=== PATIENT | female | born 1945 | race Caucasian/White ===

== ENCOUNTER → 2017-11-20 | Outpatient (CLI) | payer MEDICARE ==
[~2017-11-20] MED LIST: ASPIR 8181 MG PO; CIPRO500 MG PO; CLEOCIN HCL150 MG PO; COLON HERBAL C1 EACH PO; MIRALAX17 GM PO; NAMENDA 5 MG TAB5 M1 PO; NORCO 5-325 TA1 EACH PO; SEE COMMENTS; STOOL SOFTENER100 MG PO; UNICOMPLEX M TA1 TA1 PO
== END ==
LOC: M.ULTRA 07:27
DX: R22.2 Localized swelling, mass and lump, trunk (principal); I10 Essential (primary) hypertension; E78.5 Hyperlipidemia, unspecified; I95.89 Other hypotension; Z90.710 Acquired absence of both cervix and uterus

== ENCOUNTER 2018-04-13 11:39 | Emergency (ER) | payer MEDICARE ==
[~2018-04-13] VITALS: Ht 162.6 cm; Wt 81.7 kg
[2018-04-13 12:07] LABS: ABSOLUTE BASOPHILS 0.1 thou/uL (0.0-0.2); ABSOLUTE LYMPHOCYTES 1.2 thou/uL (0.8-5.3); ABSOLUTE MONOCYTES 0.5 thou/uL (0.0-1.2); ABSOLUTE NEUTROPHILS 6.8 thou/uL (1.6-8.1); BASOPHILS 0.7 %; EOSINOPHILS 0.3 %; HEMATOCRIT 34.2 % (37.0-47.0); HEMOGLOBIN 11.4 gm/dL (12.0-15.0); LYMPHOCYTES 13.7 %; MCH 29.1 pg (26.0-34.0); MCHC 33.4 g/dL (28.0-37.0); MCV 87.1 fL (80.0-100.0); MONOCYTES 6.4 %; MPV 6.6 fl. (7.2-11.1); NUCLEATED RBCS 0 /100WBC; PLATELET COUNT* 524 thou/uL (150-400); POLYS 78.9 %; RBC 3.92 mil/uL (4.20-5.00); RDW-CV 13.7 % (10.5-14.5); WBC 8.6 thou/uL (4.0-11.0)
[2018-04-13 12:15] LABS: ANION GAP 7 mmol/L (7-16); BUN 8 mg/dL (7-18); CALCIUM 8.8 mg/dL (8.5-10.1); CHLORIDE 98 mmol/L (98-107); CO2 28 mmol/L (21-32); CREATININE 0.6 mg/dL (0.6-1.3); GLUCOSE 108 mg/dL (70-99); POTASSIUM 3.7 mmol/L (3.5-5.1); SODIUM 133 mmol/L (136-145)
[2018-04-13 12:16] LABS: APTT 36.6 Seconds (25.0-31.3); INR 1.1; PROTIME 10.7 Seconds (9.20-11.50)
[2018-04-13 12:33] LABS: ALBUMIN 2.1 g/dL (3.4-5.0); ALKALINE PHOSPHATASE 86 U/L (46-116); CK-MB MASS < 0.5 ng/mL (<0.5-3.6); NT-PRO BRAIN NAT PEPTIDE 115 pg/mL (<300); SGOT 37 U/L (15-37); SGPT 55 U/L (30-65); TOTAL BILIRUBIN 0.4 mg/dL (<0.1-1.0); TOTAL PROTEIN 6.9 g/dL (6.4-8.2); TROPONIN-I LEVEL <0.06 ng/mL (<0.06)
[2018-04-13 13:29] LABS: URINE BILIRUBIN NEGATIVE (Negative); URINE BLOOD NEGATIVE (Negative); URINE CLARITY CLEAR; URINE COLOR YELLOW; URINE GLUCOSE-RANDOM NEGATIVE (Negative); URINE KETONES NEGATIVE (Negative); URINE LEUKOCYTES-REFLEX NEGATIVE (Negative); URINE NITRITE-REFLEX NEGATIVE (Negative); URINE PROTEIN NEGATIVE (Negative); URINE SPECIFIC GRAVITY <= 1.005 (1.005-1.030); URINE UROBILINOGEN 0.2 E.U./dl (0.2-1.0)
[2018-04-13 13:44] VITALS: BP 129/53
--- NOTE | 2018-04-13 18:44 | EKG ---
[place] [address] ELECTROCARDIOGRAM REPORT Name: AYSHA WILEY Room: [facility]#: [id number] Admission: 04/13/18 Attend Phys: Discharge: 04/13/18 Date of : 41 Report #: [id number] THIS REPORT FOR: //name// [facility] ED Test Date: 2018-04-13 Test Time: 12:07:31 Pat Name: AYSHA WILEY Department: Room: Gender: F Transcription Manager: : 1945 Requested By: Tello Chavez Order Number: [id number] MD: Vince Uriarte Measurements Intervals [place] Rate: 80 P: 49 ND: 130 QRS: -8 QRSD: 89 T: 15 QT: 381 QTc: 440 Interpretive Statements Sinus rhythm Abnormal R-wave progression, early transition Compared to ECG 06/27/2015 10:28:28 No significant changes Electronically Signed On 04-13-2018 18:44:46 CDT by Vince Uriarte [email or web address] <ELECTRONICALLY SIGNED> By: Vince Uriarte MD, [facility] 04/13/18 1844 1207 120 Vince Uriarte MD, FACC /EPI
== END 2018-04-13 13:46 | disposition home or self-care (01) ==
LOC: M.ERS 11:39
PROVIDERS: Family Medicine
DX: R53.1 Weakness (principal); I10 Essential (primary) hypertension; G30.9 Alzheimer's disease, unspecified; Z88.0 Allergy status to penicillin; Z88.1 Allergy status to other antibiotic agents

== ENCOUNTER 2019-10-04 10:37 | Emergency (ER) | payer MEDICARE ==
[~2019-10-04] VITALS: Ht 162.6 cm; Wt 66.2 kg
[2019-10-04] MEDS ORDERED: DULCOLAX STOOL100 M1 PO (11:17)
[2019-10-04 11:27] LABS: URINE BILIRUBIN NEGATIVE (Negative); URINE BLOOD TRACE (Negative); URINE CLARITY CLEAR; URINE COLOR YELLOW; URINE GLUCOSE-RANDOM NEGATIVE (Negative); URINE KETONES NEGATIVE (Negative); URINE LEUKOCYTES-REFLEX TRACE (Negative); URINE PROTEIN NEGATIVE (Negative); URINE SPECIFIC GRAVITY 1.015 (1.005-1.030); URINE UROBILINOGEN 0.2 E.U./dl (0.2-1.0)
[2019-10-04 11:28] LABS: URINE NITRITE-REFLEX POSITIVE (Negative)
[2019-10-04 11:32] LABS: BACTERIA-REFLEX >30 Many /HPF (None Seen); MUCUS None Seen strn/LPF (None Seen); SQUAMOUS 0-3 Few /LPF (0-3); URINE RBC 0-2 Rare /HPF (0-2); URINE WBC-REFLEX 6-15 Few /HPF (0-5)
[2019-10-04 11:33] LABS: CASTS None Seen /LPF (None Seen); CRYSTALS None Seen /LPF (None Seen)
[2019-10-04 11:57] LABS: ABSOLUTE LYMPHOCYTES 0.7 thou/uL (0.8-5.3); ABSOLUTE MONOCYTES 0.6 thou/uL (0.0-1.2); ABSOLUTE NEUTROPHILS 6.8 thou/uL (1.6-8.1); BASOPHILS 0.2 %; EOSINOPHILS 0.2 %; HEMATOCRIT 38.5 % (37.0-47.0); HEMOGLOBIN 12.9 gm/dL (12.0-15.0); LYMPHOCYTES 8.2 %; MCH 30.2 pg (26.0-34.0); MCHC 33.5 g/dL (28.0-37.0); MCV 90.3 fL (80.0-100.0); MONOCYTES 7.1 %; MPV 8.3 fl. (7.2-11.1); NUCLEATED RBCS 0 /100WBC; PLATELET COUNT* 151 thou/uL (150-400); POLYS 84.3 %; RBC 4.27 mil/uL (4.20-5.00); RDW-CV 13.9 % (10.5-14.5)
[2019-10-04 12:04] LABS: APTT 29.7 Seconds (25.0-31.3); PROTIME 10.5 Seconds (9.20-11.50)
[2019-10-04 12:08] LABS: CALCIUM 8.4 mg/dL (8.5-10.1); CREATININE 0.7 mg/dL (0.6-1.3); TOTAL BILIRUBIN 0.4 mg/dL (<0.1-1.0); TOTAL PROTEIN 6.3 g/dL (6.4-8.2)
[2019-10-04 12:22] LABS: POTASSIUM 3.9 mmol/L (3.5-5.1)
[2019-10-04 14:18] VITALS: BP 106/41
--- NOTE | 2019-10-04 15:28 | EKG ---
[place] [address] ELECTROCARDIOGRAM REPORT Name: SAURABHAYSHA N Room: [facility]#: [id number] Admission: 10/04/19 Attend Phys: Discharge: 10/04/19 Date of : 41 Report #: [id number] THIS REPORT FOR: //name// [facility] ED Test Date: 2019-10-04 Test Time: 10:55:56 Pat Name: AYSHA WILEY Department: Room: Gender: F Post Framer: : 1945 Requested By: Tello Chavez Order Number: [id number] MD: Taj Grant Measurements Intervals [place] Rate: 70 P: 51 MA: 154 QRS: -7 QRSD: 98 T: 12 QT: 421 QTc: 455 Interpretive Statements Sinus rhythm Abnormal R-wave progression, early transition Compared to ECG 04/13/2018 12:07:31 No significant changes Electronically Signed On 10-04-2019 15:27:44 SALOON KEEPER by Taj Grant [email or web address] <ELECTRONICALLY SIGNED> By: Taj Grant MD, [facility] 10/04/19 1527 1055 1055 Taj Grant MD, FACC /EPI
== END 2019-10-04 14:18 ==
LOC: M.ERS 10:37
PROVIDERS: Family Medicine
DX: S00.83XA Contusion of other part of head, initial encounter (principal); I10 Essential (primary) hypertension; F03.90 Unspecified dementia, unspecified severity, without behavioral disturbance, psychotic disturbance, mood disturbance, and anxiety; G30.9 Alzheimer's disease, unspecified; F02.80 Dementia in other diseases classified elsewhere, unspecified severity, without behavioral disturbance, psychotic disturbance, mood disturbance, and anxiety; Z90.710 Acquired absence of both cervix and uterus; Z88.0 Allergy status to penicillin; Z88.2 Allergy status to sulfonamides; Z88.8 Allergy status to other drugs, medicaments and biological substances; W01.0XXA Fall on same level from slipping, tripping and stumbling without subsequent striking against object, initial encounter; Y93.89 Activity, other specified; Y92.89 Other specified places as the place of occurrence of the external cause; Y99.8 Other external cause status

== ENCOUNTER 2021-01-13 17:17 | Inpatient (IN) | payer MEDICARE ==
[~2021-01-13] VITALS: Ht 157.5 cm; Wt 78.9 kg
[~2021-01-13 17:17] MED LIST changes: +DULCOLAX STOOL100 M1 PO
[2021-01-13] MEDS ORDERED: TYLENOL325 MG PO (17:18)
[2021-01-13] MEDS ORDERED: SEROQUEL 25 MG25 M1 PO (17:19)
[2021-01-13] MEDS ORDERED: MIRALAX119 GM PO (17:19)
[2021-01-13] MEDS ORDERED: COLACE100 MG PO (17:19)
[2021-01-13] MEDS ORDERED: MELATONIN3 M1 PO (17:20)
[2021-01-13] MEDS ORDERED: TRILEPTAL150 MG PO (17:20)
[2021-01-13 17:21] VITALS: BP 119/51
[2021-01-13] MEDS ORDERED: VITAMIN C WIT1000 MG PO (17:21)
[2021-01-13] MEDS ORDERED: PEPCID20 MG PO (17:21)
[2021-01-13] MEDS ORDERED: VITAMIN D350 MCG PO (17:22)
[2021-01-13] MEDS ORDERED: ZINC50 MG PO (17:22)
[2021-01-13 17:41] LABS: ABSOLUTE EOSINOPHILS 0.1 thou/uL (0.0-0.7); ABSOLUTE LYMPHOCYTES 1.9 thou/uL (0.8-5.3); ABSOLUTE MONOCYTES 0.2 thou/uL (0.0-1.2); ABSOLUTE NEUTROPHILS 3.1 thou/uL (1.6-8.1); BASOPHILS 0.6 %; EOSINOPHILS 1.2 %; HEMATOCRIT 37.8 % (37.0-47.0); HEMOGLOBIN 12.4 gm/dL (12.0-15.0); LYMPHOCYTES 35.3 %; MCH 30.5 pg (26.0-34.0); MCHC 32.8 g/dL (28.0-37.0); MONOCYTES 4.6 %; MPV 7.9 fl. (7.2-11.1); NUCLEATED RBCS 0 /100WBC; PLATELET COUNT* 176 thou/uL (150-400); POLYS 58.3 %; RBC 4.06 mil/uL (4.20-5.00); RDW-CV 14.4 % (10.5-14.5); WBC 5.3 thou/uL (4.0-11.0)
[2021-01-13 17:47] LABS: URINE BILIRUBIN NEGATIVE (Negative); URINE BLOOD TRACE (Negative); URINE CLARITY SL CLOUDY; URINE COLOR YELLOW; URINE GLUCOSE-RANDOM NEGATIVE (Negative); URINE KETONES NEGATIVE (Negative); URINE LEUKOCYTES-REFLEX TRACE (Negative); URINE PROTEIN NEGATIVE (Negative); URINE SPECIFIC GRAVITY 1.025 (1.005-1.030); URINE UROBILINOGEN 0.2 E.U./dl (0.2-1.0)
[2021-01-13 17:48] LABS: CALCIUM 9.1 mg/dL (8.5-10.1); CREATININE 0.9 mg/dL (0.6-1.3); POTASSIUM 4.9 mmol/L (3.5-5.1)
[2021-01-13 17:51] LABS: URINE NITRITE-REFLEX POSITIVE (Negative)
[2021-01-13 17:51] LABS: APTT 24.5 Seconds (25.0-31.3); INR 0.9; PROTIME 10.1 Seconds (9.20-11.50)
[2021-01-13 17:52] LABS: ALBUMIN 3.6 g/dL (3.4-5.0); TOTAL BILIRUBIN 0.3 mg/dL (<0.1-1.0); TOTAL PROTEIN 7.3 g/dL (6.4-8.2)
[2021-01-13 17:53] LABS: AMORPHOUS URATES Few /LPF (None Seen); BACTERIA-REFLEX >30 Many /HPF (None Seen); HYALINE CASTS 0-3 Few /LPF (None Seen); SQUAMOUS >10 Many /LPF (0-3)
[2021-01-13 17:54] LABS: URINE RBC 3-10 Few /HPF (0-2); URINE WBC-REFLEX 6-15 Few /HPF (0-5)
[2021-01-13 20:00] VITALS: BP 105/64
[2021-01-13 20:41] VITALS: BP 102/58
--- NOTE | 2021-01-14 03:57 | NUR ---
PT ARRIVED TO THE UNIT AT 2030. CONFUSED AND FORGETFUL. PT REFUSED MEDS. DENIED PAIN. INCONTINENT OF BLADDER. BED ALARM ON FOR SAFETY. IVF INFUISING ORDERED. WILL CONTINUE TO MONITOR.
[2021-01-14 04:07] LABS: HEMATOCRIT 34.9 % (37.0-47.0); HEMOGLOBIN 11.3 gm/dL (12.0-15.0); MCH 30.5 pg (26.0-34.0); MCHC 32.5 g/dL (28.0-37.0); MCV 93.7 fL (80.0-100.0); RBC 3.73 mil/uL (4.20-5.00); RDW-CV 14.7 % (10.5-14.5); WBC 4.8 thou/uL (4.0-11.0)
[2021-01-14 04:26] LABS: CALCIUM 8.9 mg/dL (8.5-10.1); CREATININE 0.7 mg/dL (0.6-1.3); POTASSIUM 4.1 mmol/L (3.5-5.1)
[2021-01-14 08:00] VITALS: BP 89/47
[2021-01-14 16:00] VITALS: BP 127/54
--- NOTE | 2021-01-14 18:54 | NUR ---
PT NOT ORIENTED AT ALL. END STAGE DEMENTIA. CONFUSED. STUTTERS. DOES NOT FOLLOW COMMANDS. PT AGITATED AND DOES SWING AT STAFF. IMPULSIVE. DOES TRY TO GET OUT OF BED. NEW IV IN LEFT HAND WRAPPED IN [place]. LAB DRAWN X 3 DUE TO AGITATION. AT BEDSIDE EARLY IN THE SHIFT. STATES THIS IS PTS BASELINE. PT DOES EAT FOOD INDEPENDENTLY AT TIMES. PT RESTING IN BED AT THIS TIME. CALL LIGHT WITHIN REACH. WILL CONTINUE TO MONITOR.
[2021-01-14 20:00] VITALS: BP 125/62
--- NOTE | 2021-01-15 04:14 | NUR ---
PT A&O X 1, CONFUSED. VSS ON RA. PT REFUSED MEDS FIRST. THEN MEDS CRUSHED AND GIVEN WITH APPLE SAUCE. PT INCONTINENT AND REPOSITIONED EVERY 2 HRS. BED ALARM ON FOR SAFETY. WILL CONTINUE TO MONITOR.
[2021-01-15 04:49] LABS: CREATININE 0.7 mg/dL (0.6-1.3); HEMATOCRIT 34.6 % (37.0-47.0); HEMOGLOBIN 11.5 gm/dL (12.0-15.0); MAGNESIUM 2.1 mg/dL (1.8-2.4); MCH 30.7 pg (26.0-34.0); MCHC 33.1 g/dL (28.0-37.0); MCV 92.8 fL (80.0-100.0); MPV 8.2 fl. (7.2-11.1); POTASSIUM 4.3 mmol/L (3.5-5.1); RBC 3.73 mil/uL (4.20-5.00); RDW-CV 14.5 % (10.5-14.5)
[2021-01-15 07:10] VITALS: BP 131/71
--- NOTE | 2021-01-15 12:00 | NUR ---
SPOKE WITH PT'S IN ROOM. PT.SEEMED TO BE TALKING WITH BUT UNABLE TO UNDERSTAND HER. HE SAID SHE WILL SAY WORDS THAT DON'T MAKE SENSE AND DOESN'T SEEM TO KNOW ANYONE. SHE HAS LIVES AT [facility] FOR ABOUT 2 YRS, IN THEIR MEMORY CARE UNIT. SHE IS AMBULATORY AND WANDERS, STATED. SHE FEEDS SELF. SHE SEEMS TO NOT GET ALONG WITH FEMALES WELL WITH MEN. HE WOULD LIKE HER TO RETURN THERE AT DISCHARGE. SPOKE WITH TO [facility]. SHE CONFIRMED PT.WAS ON THEIR MEMORY CARE UNIT AND COULD SKILL HER IF NEEDED AT DISCHARGE. PT/OT ORDERS ARE IN. FAXED CLINICALS TO [facility].
--- NOTE | 2021-01-15 16:09 | NUR ---
PT REMAINED ALERT AND CONFUSED. PT COMBATIVE AT TIMES. 2 NEW IVS PLACED PT PULLED OLD IV OUT. AGITATION MEDS GIVEN ORDERED. SECURITY ASSISTED WITH HOLDING PT DOWN WHILE PLACING IV'S. Q2 TURNS COMPLETED. ASSISTED WITH FEEDING. FALL RISK PRECAUTIONS IN PLACE. HOURLY ROUNDING COMPLETED.
[2021-01-15 16:10] VITALS: BP 145/118
--- NOTE | 2021-01-15 17:30 | EKG ---
[place] [address] ELECTROCARDIOGRAM REPORT Name: SAURABHAYSHA N Room: [address] IN ..#: [id number] Admission: 01/13/21 Attend Phys: Yaw Morgan, Discharge: Date of : 41 Date of Service: 01/13/21 1726 Report #: [id number] THIS REPORT FOR: //name// [facility] ED Test Date: 2021-01-13 Test Time: 17:26:23 Pat Name: AYSHA WILEY Department: Room: [facility] Gender: F Dock Loader: KAITLIN : 1945 Requested By: Tello Chavez Order Number: [id number] MD: Vince Uriarte Measurements Intervals [place] Rate: 66 P: 23 [place]: 156 QRS: -16 QRSD: 102 T: 9 QT: 427 QTc: 448 Interpretive Statements Sinus rhythm Low voltage, precordial leads Abnormal R-wave progression, early transition Probable left ventricular hypertrophy Compared to ECG 10/04/2019 10:55:56 Low QRS voltage now present Electronically Signed On 01-15-2021 17:30:09 CDT by Vince Uriarte [email or web address] <ELECTRONICALLY SIGNED> By: Vince Uriarte MD, [facility] 01/15/21 1730 1726 1726 Vince Uriarte MD, FAC /EPI
[2021-01-16 08:12] LABS: HEMOGLOBIN 11.5 gm/dL (12.0-15.0)
[2021-01-16 08:15] LABS: ABSOLUTE MONOCYTES 0.3 thou/uL (0.0-1.2); MCH 30.4 pg (26.0-34.0); MONOCYTES 5.7 %; NUCLEATED RBCS 0 /100WBC; PLATELET COUNT* 169 thou/uL (150-400); RDW-CV 14.7 % (10.5-14.5)
[2021-01-16 08:19] LABS: ABSOLUTE LYMPHOCYTES 1.6 thou/uL (0.8-5.3); ABSOLUTE NEUTROPHILS 3.4 thou/uL (1.6-8.1); BASOPHILS 0.7 %; EOSINOPHILS 0.9 %; HEMATOCRIT 35.3 % (37.0-47.0); LYMPHOCYTES 29.3 %; MCHC 32.7 g/dL (28.0-37.0); MPV 8.4 fl. (7.2-11.1); POLYS 63.4 %; WBC 5.4 thou/uL (4.0-11.0)
[2021-01-16 08:25] LABS: ALBUMIN 3.1 g/dL (3.4-5.0); CALCIUM 8.6 mg/dL (8.5-10.1); CREATININE 0.6 mg/dL (0.6-1.3); POTASSIUM 3.8 mmol/L (3.5-5.1); TOTAL BILIRUBIN 0.4 mg/dL (<0.1-1.0); TOTAL PROTEIN 6.5 g/dL (6.4-8.2)
[2021-01-16] MEDS ORDERED: MAG-AL PLUS SUS30 ML PO (08:57)
[2021-01-16] MEDS ORDERED: PHENERGAN 25 MG25 M1 PO (08:57)
[2021-01-16] MEDS ORDERED: BANOPHEN25 MG PO (08:57)
[2021-01-16] MEDS ORDERED: MACROBID 100 M100 MG PO (09:11)
--- NOTE | 2021-01-16 16:47 | NUR ---
PT.TO DISCHARGE TO [facility] TODAY. SHE WILL BE SKILLED PT.TO START. NOTIFIED [facility] AND FAXED DISCHARGE SUMMARY AND DISCHARGE MEDS TO HER AT [phone] VAN ARRANGED WITH [employer] FOR . CHART COPIED TO GO WITH PT. JORDYN TAMAYO TO CALL REPORT. ROSALIO SAID HERE AND WAS AWARE OF DISCHARGE TIME. HE LEFT TO GO HOME.
[2021-01-16 16:50] VITALS: BP 118/52
[2021-01-16 17:34] VITALS: BP 118/52
--- NOTE | 2021-01-16 17:43 | NUR ---
Pt continues to be disoriented x4. Pt agreeable to most cares and only yells when being turned. Pt had a good appetite today. at bedside for most of the day and left when discharge plan was in place. Pt had a BM just before leaving the facility. Pt left facility in wheelchair by wheelchair van.
== END 2021-01-16 16:53 | DRG 689 ==
LOC: M.ERS 17:17 → M.ORTHSURG 18:12 → M.TBA-ER 18:12 → M.ORTHSURG 20:33
PROVIDERS: Family Medicine; Internal Medicine; ADMIT Internal Medicine; ATTEND Internal Medicine
DX: N30.01 Acute cystitis with hematuria (principal); G92 Toxic encephalopathy; I10 Essential (primary) hypertension; G30.9 Alzheimer's disease, unspecified; F02.80 Dementia in other diseases classified elsewhere, unspecified severity, without behavioral disturbance, psychotic disturbance, mood disturbance, and anxiety; Z66 Do not resuscitate; Z20.822 Contact with and (suspected) exposure to COVID-19; Z90.710 Acquired absence of both cervix and uterus; Z79.899 Other long term (current) drug therapy; Z88.0 Allergy status to penicillin; Z88.2 Allergy status to sulfonamides; Z88.8 Allergy status to other drugs, medicaments and biological substances

== ENCOUNTER 2021-05-07 09:12 | Emergency (ER) | payer MEDICARE ==
[~2021-05-07] VITALS: Ht 165.1 cm; Wt 76.9 kg
[~2021-05-07 09:12] MED LIST changes: +BANOPHEN25 MG PO; +COLACE100 MG PO; +MACROBID 100 M100 MG PO; +MAG-AL PLUS SUS30 ML PO; +MELATONIN3 M1 PO; +MIRALAX119 GM PO; +PEPCID20 MG PO; +PHENERGAN 25 MG25 M1 PO; +SEROQUEL 25 MG25 M1 PO; +TRILEPTAL150 MG PO; +TYLENOL325 MG PO; +VITAMIN C WIT1000 MG PO; +VITAMIN D350 MCG PO; +ZINC50 MG PO
[2021-05-07 09:52] LABS: ABSOLUTE LYMPHOCYTES 1.4 thou/uL (0.8-5.3); ABSOLUTE MONOCYTES 0.3 thou/uL (0.0-1.2); ABSOLUTE NEUTROPHILS 4.7 thou/uL (1.6-8.1); BASOPHILS 0.4 %; EOSINOPHILS 0.8 %; HEMATOCRIT 36.1 % (37.0-47.0); HEMOGLOBIN 12.4 gm/dL (12.0-15.0); MCH 31.3 pg (26.0-34.0); MCHC 34.3 g/dL (28.0-37.0); MCV 91.3 fL (80.0-100.0); MONOCYTES 3.9 %; MPV 7.9 fl. (7.2-11.1); NUCLEATED RBCS 0 /100WBC; PLATELET COUNT* 172 thou/uL (150-400); POLYS 72.9 %; RBC 3.96 mil/uL (4.20-5.00); RDW-CV 14.5 % (10.5-14.5); WBC 6.5 thou/uL (4.0-11.0)
[2021-05-07 10:01] LABS: CALCIUM 8.5 mg/dL (8.5-10.1); CREATININE 0.7 mg/dL (0.6-1.3); POTASSIUM 3.4 mmol/L (3.5-5.1)
[2021-05-07 10:05] LABS: ALBUMIN 3.3 g/dL (3.4-5.0); TOTAL BILIRUBIN 0.4 mg/dL (<0.1-1.0); TOTAL PROTEIN 6.8 g/dL (6.4-8.2)
[2021-05-07 11:53] VITALS: BP 116/46
--- NOTE | 2021-05-07 14:41 | EKG ---
[place] [address] ELECTROCARDIOGRAM REPORT Name: AYSHA WILEY Room: [facility]#: [id number] Admission: 05/07/21 Attend Phys: Discharge: 05/07/21 Date of : 41 Date of Service: 05/07/21921 Report #: [id number] THIS REPORT FOR: //name// [facility] ED Test Date: 2021-05-07 Test Time: 09:22:49 Pat Name: AYSHA WILEY Department: Room: Gender: F Analytics Leader: LEOBARDO : 1945 Requested By: Abner Covarrubias Order Number: [id number] MD: Vince Uriarte Measurements Intervals [place] Rate: 59 P: 37 [place]: 150 QRS: -7 QRSD: 94 T: 21 QT: 447 QTc: 443 Interpretive Statements Sinus rhythm Low voltage, precordial leads Abnormal R-wave progression, early transition Compared to ECG 01/13/2021 17:26:23 No significant changes Electronically Signed On 05-07-2021 14:41:25 CDT by Vince Uriarte [email or web address] <ELECTRONICALLY SIGNED> By: Vince Uriarte MD, [facility] 05/07/21 1441 1 1 Vince Uriarte MD, [facility] /EPI
== END 2021-05-07 11:55 | disposition home or self-care (01) ==
LOC: M.ERS 09:12
PROVIDERS: Emergency Medicine Emergency Medical Services
DX: M25.561 Pain in right knee (principal); I10 Essential (primary) hypertension; Z88.0 Allergy status to penicillin; Z88.2 Allergy status to sulfonamides; Z88.8 Allergy status to other drugs, medicaments and biological substances; Z90.710 Acquired absence of both cervix and uterus; W07.XXXA Fall from chair, initial encounter; Y93.89 Activity, other specified; Y92.89 Other specified places as the place of occurrence of the external cause; Y99.8 Other external cause status